=== PATIENT | female | born 1945 | race Caucasian/White ===

== ENCOUNTER 2016-09-25 14:13 | Outpatient (CLI) | payer OTHER ==
[~2016-09-25 14:13] MED LIST: ALLEGRA ALLERG180 MG; ALLEGRA ALLERG180 MG PO; FLOVENT HFA220 MCG INH; IPRATROPIUM BROMIDE/ IN; MICRO-K10 MEQ PO; NEBULIZER IN; O2 IN; PREDNISONE20 MG PO; PROVENTIL HFA; SINGULAIR10 MG PO; VENTOLIN HFA IN; WELLBUTRIN
--- NOTE | 2016-09-25 14:48 | DIAGNOSTIC IMAGING REPORT ---
PROCEDURE: XR KNEE 4 VIEWS - RIGHT INDICATION: RIGHT KNEE PAIN TECHNIQUE: Four views. COMPARISON: None. FINDINGS: Osseous structures and joint spaces are normal. IMPRESSION: 1. Normal right knee.
== END 2016-09-25 23:00 ==
LOC: XR SRH 14:13
DX: M25.561 Pain in right knee (principal)

== ENCOUNTER 2016-11-20 10:08 | Outpatient (CLI) | payer OTHER ==
--- NOTE | 2016-11-20 10:35 | DIAGNOSTIC IMAGING REPORT ---
PROCEDURE: XR CHEST 2 VIEW INDICATION: COUGH RO PNEUMONIA TECHNIQUE: PA and lateral views. COMPARISON: Chest 07/16/2016 FINDINGS: Lungs are clear. Heart and mediastinum are normal. Thorax is normal. IMPRESSION: 1. Negative chest.
== END 2016-11-20 23:00 ==
LOC: XR SRH 10:08
DX: J40 Bronchitis, not specified as acute or chronic (principal); R05 Cough